=== PATIENT | male | born 1980 | race African-American/Black ===

== ENCOUNTER 2016-10-14 10:30 | Emergency (ER) | payer SELFPAY ==
[~2016-10-14] VITALS: Ht 175.3 cm; Wt 73.0 kg
[2016-10-14] MEDS ORDERED: IBUPROFEN 600MG TABLET PO ONE (11:45)
[2016-10-14 11:58] VITALS: BP 134/86
== END 2016-10-14 12:03 | disposition home or self-care (01) ==
LOC: ER 11:00
DX: S10.93XA Contusion of unspecified part of neck, initial encounter (principal); Y04.8XXA Assault by other bodily force, initial encounter; Y93.89 Activity, other specified; Y92.481 Parking lot as the place of occurrence of the external cause; R03.0 Elevated blood-pressure reading, without diagnosis of hypertension
CPT/HCPCS: 99282

== ENCOUNTER 2018-08-27 15:43 | Emergency (ER) | payer SELFPAY ==
[~2018-08-27] VITALS: Ht 175.3 cm; Wt 73.0 kg
[2018-08-27 15:50] VITALS: BP 91/81
== END 2018-08-27 16:48 | disposition home or self-care (01) ==
LOC: ER 15:43
DX: S20.219A Contusion of unspecified front wall of thorax, initial encounter (principal); X58.XXXA Exposure to other specified factors, initial encounter; Y93.66 Activity, soccer; Y92.9 Unspecified place or not applicable
CPT/HCPCS: 93005; 99283

== ENCOUNTER 2020-04-13 09:34 | Emergency (ER) | payer SELFPAY ==
[~2020-04-13] VITALS: Ht 175.3 cm; Wt 73.0 kg
[2020-04-13] MEDS ORDERED: IBUPROFEN 600MG TABLET PO STA (11:47)
[2020-04-13 12:14] VITALS: BP 170/94
== END 2020-04-13 13:23 | disposition home or self-care (01) ==
LOC: ER 09:34
DX: S20.212A Contusion of left front wall of thorax, initial encounter (principal); R07.81 Pleurodynia; X58.XXXA Exposure to other specified factors, initial encounter; Y93.66 Activity, soccer; Y92.9 Unspecified place or not applicable
CPT/HCPCS: 71101; 93005; 99283

== ENCOUNTER 2020-07-24 08:39 | Emergency (ER) | payer MEDICAID ==
[~2020-07-24] VITALS: Ht 175.3 cm; Wt 73.0 kg
[2020-07-24 09:49] VITALS: BP 148/85
== END 2020-07-24 09:50 | disposition home or self-care (01) ==
LOC: ER 08:39
DX: R10.9 Unspecified abdominal pain (principal)
CPT/HCPCS: 93005; 99283

== ENCOUNTER 2024-10-16 20:03 | Emergency (ER) | payer SELFPAY ==
[~2024-10-16] VITALS: Ht 177.8 cm; Wt 73.0 kg
[2024-10-16 20:11] VITALS: O2SAT 99
[2024-10-16] MEDS ORDERED: IBUP-2030 MT (21:49)
[2024-10-16 21:59] VITALS: BP 148/87; PULSE 76; RESP 17; TEMP 37; O2SAT 99
== END 2024-10-16 21:59 | disposition home or self-care (01) ==
LOC: ER 20:03
DX: S22.31XA Fracture of one rib, right side, initial encounter for closed fracture (principal); X58.XXXA Exposure to other specified factors, initial encounter; Y93.66 Activity, soccer; Y92.89 Other specified places as the place of occurrence of the external cause; Y99.8 Other external cause status
CPT/HCPCS: 71101; 99283